=== PATIENT | male | born 1985 | race Asian ===

== ENCOUNTER 2016-10-13 12:38 | Emergency (ER) | payer MEDICAID ==
--- NOTE | 2016-10-13 13:12 | ED Physician Chart ---
Chief Complaint/HPI - Patient Information Date Seen:: 10/13/16 Time Seen:: 13:00 Chief Complaint:: HEADACHE History of Present Illness:: THIS IS A 31 YO MALE WITH A RECURRENT HEADACHES FOR TWO DAYS AND TOOK TYLENOL WITHOUT RELIEF. HE DENIES NAUSEA AND VOMITING. THE PATIENT HAS A HISTORY OF HEART DISEASE AND HIGH CHOLESTEROL. HE STOPPED SMOKING YRS AGO. Allergies:: Allergies Allergy/AdvReac Type Severity Reaction Status Date / Time No Known Allergies Allergy Verified 10/13/16 12:45 Vitals:: Vital Signs - 8 hr 10/13/16 10/13/16 12:45 13:03 Temp 98.6 F 98 F HR 85 85 RR 16 16 BP 143/95 140/80 O2 Sat % 98 98 Historian:: Patient Review:: Nurse's Note Reviewed Review of Systems - Review of Systems General/Constitutional: No fever, No chills, No weight loss, No weakness, No diaphoresis, No edema, No loss of appetite Skin: No skin lesions, No rash, No bruising Head: Headache, No light-headedness Eyes: No loss of vision, No pain, No diplopia ENT: No earache, No nasal drainage, No sore throat, No tinnitus Neck: No neck pain, No swelling, No thyromegaly, No stiffness, No mass noted Cardio Vascular: No chest pain, No palpitations, No PND, No orthopnea, No edema Pulmonary: No SOB, No cough, No sputum, No wheezing GI: No nausea, No vomiting, No diarrhea, No pain, No melena, No hematochezia, No constipation, No hematemesis G/U: No dysuria, No frequency, No hematuria Musculoskeletal: No bone or joint pain, No back pain, No muscle pain Endocrine: No polyuria, No polydipsia Psychiatric: No prior psych history, No depression, No anxiety, No suicidal ideation Hematopoietic: No bruising, No lymphadenopathy Allergic/Immuno: No urticaria, No angioedema Neurological: No syncope, No focal symptoms, No weakness, No paresthesia, No headache, No seizure, No dizziness, No confusion, No vertigo Past Medical History - Past Medical History Obtainable: Yes Past Medical History: CAD, Dyslipidemia Family History: None Social History: Non Smoker, No Alcohol, No Drug Use Surgical History: None Psychiatricy History: None Medication: Reviewed Family Medical History - Family Member Mother History Unknown: Yes Hx Family Cancer: No Hx Family Coronary Artery Disease: No Hx Family Congestive Heart Failure: No Hx Family Hypertension: No Hx Family Dementia: No Hx Family AIDS: No Hx Family HIV: No Hx Family COPD: No Hx Family Hepatitis: No Hx Family Psychiatric Problems: No Physical Exam - Physical Examination General/Constitutional: Awake, Well-developed, well-nourished, Alert, No distress, GCS 15, Non-toxic appearing, Ambulatory Head: Atraumatic Eyes: Lids, conjuctiva normal, PERRL, EOMI Skin: Nl inspection, No rash, No skin lesions, No ecchymosis, Well hydrated, No lymphadenopathy ENMT: External ears, nose nl, Nasal exam nl, Lips, teeth, gums nl Neck: Nontender, Full ROM w/o pain, No JVD, No nuchal rigidity, No bruit, No mass, No stridor Respiratory: Nl effort/Exclusion, Clear to Auscultation, No Wheeze/Rhonchi/Rales Cardio Vascular: RRR, No murmur, gallop, rubs, NL S1 S2 GI: No tenderness/rebounding/guarding, No organomegaly, No hernia, Normal BS's, Nondistended, No mass/bruits, No McBurney tenderness : No CVA tenderness Extremities: No tenderness or effusion, Full ROM, normal strength in all extremities, No edema, Normal digits & nails Neuro/Psych: Alert/oriented, DTR's symmetric, Normal sensory exam, Normal motor strength, Judgement/insight normal, Mood normal, Normal gait, No focal deficits Misc: normal gait, Normal back, No paraspinal tenderness Labs/Radiology/EKG Results - Lab Results Results: Abnormal Lab Results 10/13/16 10/13/16 10/13/16 13:16 13:16 13:16 WBC 5.9 RBC 5.54 Hgb 16.4 Hct 50.1 H MCV 90.3 MCH 29.6 MCHC Differential 32.7 RDW 13.0 Plt Count 191 MPV 9.4 Neutrophils % 61.9 Lymphocytes % 25.2 Monocytes % 8.1 Eosinophils % 4.3 Basophils % 0.5 Sodium 134 L Potassium 3.8 Chloride 106 Carbon Dioxide 25.4 Anion Gap 6.4 L BUN 11 Creatinine 0.9 Est GFR ( Amer) > 60.0 Est GFR (Non-Af Amer) > 60.0 BUN/Creatinine Ratio 12.2 Glucose 119 H Calcium 9.7 Total Bilirubin 0.5 AST 20 ALT 28 Alkaline Phosphatase 85 Troponin I Total Protein 8.3 Albumin 4.8 Globulin 3.5 Albumin/Globulin Ratio 1.4 Triglycerides 68 Cholesterol 253 H LDL Cholesterol Direct 195 H HDL Cholesterol 61 10/13/16 13:16 WBC RBC Hgb Hct MCV MCH MCHC Differential RDW Plt Count MPV Neutrophils % Lymphocytes % Monocytes % Eosinophils % Basophils % Sodium Potassium Chloride Carbon Dioxide Anion Gap BUN Creatinine Est GFR ( Amer) Est GFR (Non-Af Amer) BUN/Creatinine Ratio Glucose Calcium Total Bilirubin AST ALT Alkaline Phosphatase Troponin I < 0.01 L Total Protein Albumin Globulin Albumin/Globulin Ratio Triglycerides Cholesterol LDL Cholesterol Direct HDL Cholesterol - Radiology Results Results: CT SCAN OF THE HEAD = NO ACUTE DISEASE CHEST X-RAY = NAD - EKG Interpretations EKG Time:: 13:20 Rate & Rhythm: RATE =71 [place]: LEFT ED Septic Shock - . Is Septic Shock (SBP<90, OR Lactate>4 mmol\L) present?: No - <6hrs of presentation: Vital Signs: Vital Signs - 8 hr 10/13/16 10/13/16 12:45 13:03 Temp 98.6 F 98 F HR 85 85 RR 16 16 BP 143/95 140/80 O2 Sat % 98 98 ED Discharge Plan - Patient Disposition Instructions: Tension Headache
[2016-10-13 13:26] LABS: % BASOPHILS 0.5 % (0.0-2.0); % EOSINOPHILS 4.3 % (0.0-5.0); % LYMPHOCYTES 25.2 % (20.0-50.0); % MONOCYTES 8.1 % (2.0-10.0); % NEUTROPHILS 61.9 % (40.0-80.0); HEMATOCRIT 50.1 % (39.0-49.0); HEMOGLOBIN 16.4 gm/dL (13.2-17.3); MEAN CELL VOLUME 90.3 fl (80-99); MEAN CORPUSCULAR HEMOGLOBIN 29.6 pg (26.0-30.0); MEAN CORPUSCULAR HGB CONC 32.7 pg (28.0-36.0); MEAN PLATELET VOLUME 9.4 fl; NEUTROPHILE ABSOLUTE 3.6 Th/cmm (1.8-8.0); PLATELET COUNT 191 Th/cmm (150-400); RED BLOOD COUNT 5.54 Mil/cmm (4.30-5.70); WHITE BLOOD COUNT 5.9 Th/cmm (4.8-10.8)
--- NOTE | 2016-10-13 13:41 | Diagnostic Imaging Report ---
Head CT without intravenous contrast Indication: Headache Comparison: None Technique: Axial images were obtained from the vertex to the skull base without IV contrast. Coronal reconstructions were made. Total DLP: 562, CTDI31.7 FINDINGS: Images of the brain obtained without contrast demonstrate no acute hemorrhage. No mass lesions identified. The ventricles and basal cisterns are patent. The copeland-white matter differentiation is preserved. There is no mass effect or midline shift. No skull fractures identified. No soft tissue swelling. The paranasal sinuses are clear. IMPRESSION: No acute intracranial abnormality.
[2016-10-13 13:42] LABS: ALB/GLOB RATIO 1.4 (1.0-1.8); ALKALINE PHOSPHATASE 85 U/L (34-104); ANION GAP 6.4 (7.0-16.0); BILIRUBIN,TOTAL 0.5 mg/dL (0.3-1.0); BUN - UREA NITROGEN 11 mg/dL (7-25); BUN/CREATININE RATIO 12.2; CALCIUM SERUM 9.7 mg/dL (8.6-10.3); CARBON DIOXIDE 25.4 mEq/L (21.0-31.0); CHLORIDE 106 mEq/L (98-107); CREATININE - SERUM 0.9 mg/dL (0.7-1.3); GLUCOSE 119 mg/dL (70-105); POTASSIUM SERUM 3.8 mEq/L (3.5-5.1); SGOT 20 U/L (13-39); SGPT/ALT 28 U/L (7-52); SODIUM SERUM 134 mEq/L (136-145)
[2016-10-13 13:43] LABS: CHOLESTEROL 253 mg/dL (<200); TRIGLYCERIDES 68 mg/dL (<150)
--- NOTE | 2016-10-13 14:09 | Diagnostic Imaging Report ---
CHEST X-RAY: AP view INDICATION: pain COMPARISON: None FINDINGS: There is no focal consolidation or pleural effusions The heart is normal in size. There is mild spinal scoliosis. IMPRESSION: No acute cardiopulmonary disease. Mild spinal scoliosis.
== END 2016-10-13 14:15 | disposition home or self-care (01) ==
LOC: ER 12:38
DX: R51 Headache (principal); I25.10 Atherosclerotic heart disease of native coronary artery without angina pectoris; E78.5 Hyperlipidemia, unspecified
CPT/HCPCS: 36415-UA; 70450-TC; 71010-TC; 80053-TC; 80061-TC; 84443-TC; 84484-TC; 85025-TC; 86592-TC; 93005